=== PATIENT | male | born 1995 | race Caucasian/White ===

== ENCOUNTER 2018-01-09 06:34 | Emergency (ER) | payer SELFPAY ==
[~2018-01-09] VITALS: Ht 162.6 cm; Wt 56.7 kg
[2018-01-09 06:34] VITALS: BP_SYST 141
[2018-01-09 11:16] VITALS: BP_SYST 138
== END 2018-01-09 11:00 | disposition home or self-care (01) ==
LOC: SED 06:34
DX: S01.111A Laceration without foreign body of right eyelid and periocular area, initial encounter (principal); Z88.1 Allergy status to other antibiotic agents; Y04.0XXA Assault by unarmed brawl or fight, initial encounter; Y93.89 Activity, other specified; Y92.89 Other specified places as the place of occurrence of the external cause; Y99.8 Other external cause status
CPT/HCPCS: 99283